=== PATIENT | female | born 1990 | race Caucasian/White ===

== ENCOUNTER 2017-01-29 16:06 | Emergency (ER) | payer OTHER ==
[~2017-01-29] VITALS: Ht 170.2 cm; Wt 124.6 kg
[~2017-01-29 16:06] MED LIST: CLONAZEPAM1 MG PO; GEODON60 MG PO; Motrin PO; NAPROXEN500 MG PO; NORCO 5/3251 TABLET PO; SUDAFED 12-HOU120 MG PO; TESSALON PERLE100 MG PO; TOPAMAX50 MG PO
[2017-01-29 16:28] VITALS: BP 142/86
[2017-01-29] MEDS ORDERED: GEODON20 MG PO (22:14)
== END 2017-01-29 16:51 | disposition left against medical advice (07) ==
LOC: EME 16:06
DX: F41.9 Anxiety disorder, unspecified (principal); Z53.21 Procedure and treatment not carried out due to patient leaving prior to being seen by health care provider

== ENCOUNTER 2017-01-29 19:06 | Emergency (ER) | payer OTHER ==
[~2017-01-29] VITALS: Ht 170.2 cm; Wt 124.9 kg
[2017-01-29] MEDS ORDERED: GEODON20 MG PO (22:14)
[2017-01-29 22:31] VITALS: BP 142/90
== END 2017-01-29 22:33 | disposition home or self-care (01) ==
LOC: EME 19:06
DX: F31.5 Bipolar disorder, current episode depressed, severe, with psychotic features (principal); F41.9 Anxiety disorder, unspecified; F17.200 Nicotine dependence, unspecified, uncomplicated
CPT/HCPCS: 90839; 99281; 99284

== ENCOUNTER 2017-02-13 05:06 | Emergency (ER) | payer OTHER ==
[~2017-02-13] VITALS: Ht 170.2 cm; Wt 129.1 kg
[~2017-02-13 05:06] MED LIST changes: +GEODON20 MG PO
[2017-02-13] MEDS ORDERED: NORCO 5/3251 TABLET PO (05:40)
[2017-02-13] MEDS ORDERED: MOTRIN600 MG PO (05:40)
[2017-02-13] MEDS ORDERED: PEN-VEE K,VEET500 MG PO (05:40)
[2017-02-13 06:03] VITALS: BP 126/86
== END 2017-02-13 06:04 | disposition home or self-care (01) ==
LOC: EME 05:06
DX: K02.9 Dental caries, unspecified (principal); K08.89 Other specified disorders of teeth and supporting structures
CPT/HCPCS: 99281; 99283

== ENCOUNTER 2017-02-20 01:48 | Emergency (ER) | payer OTHER ==
[~2017-02-20] VITALS: Ht 170.2 cm; Wt 127.2 kg
[~2017-02-20 01:48] MED LIST changes: +MOTRIN600 MG PO; +PEN-VEE K,VEET500 MG PO
[2017-02-20 02:22] VITALS: BP 118/77
== END 2017-02-20 02:23 | disposition home or self-care (01) ==
LOC: EME 01:48
DX: K08.89 Other specified disorders of teeth and supporting structures (principal); K02.9 Dental caries, unspecified; H92.09 Otalgia, unspecified ear; R05 Cough; J02.9 Acute pharyngitis, unspecified; F17.200 Nicotine dependence, unspecified, uncomplicated
CPT/HCPCS: 99281; 99283